=== PATIENT | male | born 1970 | race Asian ===

== ENCOUNTER 2016-11-26 10:36 | Observation (INO) | payer OTHER ==
[2016-11-26] MEDS ORDERED: NS 0.9% 1000 ML* 1,000 ML IV ONE (10:59)
[2016-11-26] MEDS ORDERED: Aspirin Low Dose CHEW TAB* 81 MG PO ONE (11:19)
[2016-11-26] MEDS ORDERED: Nitroglycerin TAB 0.4 MG* 0.4 MG TAB SL ONE (11:27)
[2016-11-26 11:30] LABS: Hematocrit 43 % (42-52); Hemoglobin 14.2 g/dl (14.0-18.0); Mean Corpuscular HGB Conc 33 g/dl (31-36); Mean Corpuscular Hemoglobin 30 pg (27-31); Mean Corpuscular Volume 91 fL (80-94); Mean Platelet Volume 9 um3 (7.4-10.4); Red Blood Count 4.74 10^6/ul (4.0-5.4); Red Cell Distribution Width 13 % (10.5-15); White Blood Count 4.6 10^3/ul (3.5-10.8)
[2016-11-26] MEDS ORDERED: Heparin for STEMI(*) 5,000 UNITS/ML 1 ML VIAL IV ONE (11:31)
[2016-11-26 11:48] LABS: ALT 29 U/L (7-52); AST 23 U/L (13-39); Albumin 4.2 g/dL (3.2-5.2); Alkaline Phosphatase 56 U/L (34-104); Anion Gap 7 mmol/L (2-11); BUN/Creatinine Ratio 13.2 (8-20); Blood Urea Nitrogen 10 mg/dL (6-24); CO2 Carbon Dioxide 25 mmol/L (22-32); Chloride 105 mmol/L (101-111); Creatine Kinase 136 U/L (10-223); EGFR African American 140.8 (>60); EGFR Non-African American 109.5 (>60); Globulin 2.9 g/dL (2-4); Glucose 97 mg/dL (70-100); Magnesium 2.2 mg/dL (1.9-2.7); Potassium 3.9 mmol/L (3.5-5.0); Sodium 137 mmol/L (133-145); Total Protein 7.1 g/dL (6.4-8.9)
[2016-11-26 12:15] LABS: TSH (Thyroid Stimulating Horm) 1.29 mcIU/mL (0.34-5.60)
--- NOTE | 2016-11-26 12:52 | RAD ---
Indication: Chest pain, CHF. Single frontal view of the chest performed at 1229 hours was reviewed. No prior study is available for comparison. No mediastinal shift is noted. Heart is of normal size and configuration. Lung padilla appear clear. IMPRESSION: NO ACTIVE CARDIOPULMONARY DISEASE IS NOTED.
[2016-11-26 12:59] LABS: C Reactive Protein < 1.00 mg/L (< 5.00); Calcium 9.1 mg/dL (8.6-10.3)
[2016-11-26] MEDS ORDERED: Acetaminophen TAB* 325 MG PO PRN (13:30)
[2016-11-26] MEDS ORDERED: Ondansetron INJ* 2 MG/ML VIAL IV PRN (13:30)
[2016-11-26 13:57] LABS: Urine Bacteria Absent (Absent); Urine Bilirubin Negative (Negative); Urine Glucose Negative (Negative); Urine Nitrite Negative (Negative)
[2016-11-26 14:16] LABS: Benzodiazepine Urine Screen None Detected (None Detect)
[2016-11-26] MEDS ORDERED: Enoxaparin(*) 40 MG/0.4 ML SYR SUBCUT SCH (15:00)
--- NOTE | 2016-11-26 16:01 | ED ---
Isidro Pedroza Salem, scribed for Gabo Alvarez MD on 11/26/16 at 1130 . HPI Chest Pain - HPI Summary HPI Summary: Patient is a 46 y/o M who presents to the ED with intermittent chest heaviness and pressure for the past 2 days. He reports irregular heartbeat, but denies SOB , diaphoresis, lightheadedness, or dizziness. Pt states that he drove to [place] recently and has been drinking a lot of EtOH and Redbull since. Pt denies PMHx of CAD. Dr. Barr called prior to pts arrival. He reports troponin of 0.05 and skipping heart beats. - History of Current Complaint Chief Complaint: EDDysrhythmPalp Time Seen by Provider: 11/26/16 11:25 Hx Obtained From: Patient Onset/Duration: Started Days Ago, Atraumatic, Still Present Timing: Intermittent Initial Severity: Moderate Current Severity: Moderate Pain Intensity: 0 Pain Scale Used: 0-10 Numeric Chest Pain Location: Diffuse Chest Pain Radiates: No Character: Pressure/Squeezing Aggravating Factor(s): Nothing Alleviating Factor(s): Nothing Associated Signs and Symptoms: Positive: Chest Pain. Negative: Shortness of Breath - Allergy/Home Medications Allergies/Adverse Reactions: Allergies Allergy/AdvReac Type Severity Reaction Status Date / Time No Known Allergies Allergy Verified 11/26/16 10:39 Home Medications: Home Medications Loratadine 10 mg PO DAILY PRN 11/26/16 [History Confirmed 11/26/16] ValACYclovir (*) [Valtrex 1 GM(*)] 1 gm PO DAILY PRN 11/26/16 [History Confirmed 11/26/16] PMH/Surg Hx/FS Hx/Imm Hx Cardiovascular History: Denies: Hx Pacemaker/ICD Sensory History: Denies: Hx Hearing Aid Psychiatric History: Denies: Hx Panic Disorder - Surgical History Surgery Procedure, Year, and Place: APPENDIX; LEFT ACHILLES HEEL; RIGHT ACL REPAIR; LEFT FOREARM Infectious Disease History: No Infectious Disease History: Denies: Traveled Outside the [place] in Last 30 Days - Family History Known Family History: Positive: Cardiac Disease - Uncle. , Hypertension, Diabetes - Social History Alcohol Use: Weekly Hx Substance Use: No Substance Use Type: Reports: None Hx Tobacco Use: No Smoking Status (MU): Never Smoked Tobacco Review of Systems Negative: Skin Diaphoresis Positive: Chest Pain - Heaviness and pressure. , Other - Irregular heartbeat. Negative: Shortness Of Breath Neurological: Other - No lightheadedness or dizziness. All Other Systems Reviewed And Are Negative: Yes Physical Exam - Summary Physical Exam Summary: The patient is well-nourished in no acute distress and in no acute pain. Pt is alert and follows commands. The skin is warm and skin color reflects adequate perfusion. Diaphoretic. HEENT: The head is normocephalic and atraumatic. The pupils are equal and reactive. The conjunctivae are clear and without drainage. Neck is supple with full range of motion and non-tender. There are no carotid bruits. There is no neck vein distension. Respiratory: Chest is non-tender. Lungs are clear to auscultation and breath sounds are symmetrical and equal. Cardiovascular: Heart is regular rhythm. Bradycardic. There is no murmur or rales auscultated. Abdomen: The abdomen is soft and non-tender. There are normal bowel sounds heard in all four quadrants and there is no organomegaly palpated. Musculoskeletal: There is no back pain noted. Extremities are non-tender with full range of motion. There is good capillary refill. There is no peripheral edema or calf tenderness elicited. Neurological: Patient is alert and oriented to person, place and time. Psychiatric: The patient has an appropriate affect and does not exhibit any anxiety or depression. Triage Information Reviewed: Yes Vital Signs On Initial Exam: Initial Vitals Temp Pulse Resp BP Pulse Ox 97.2 F 58 16 122/87 100 11/26/16 10:39 11/26/16 10:39 11/26/16 10:39 11/26/16 10:39 11/26/16 10:39 Vital Signs Reviewed: Yes - Christopher Coma Scale Coma Scale Total: 15 Diagnostics - Vital Signs Vital Signs Temp Pulse Resp BP Pulse Ox 11/26/16 10:50 97.2 F 56 16 122/87 98 11/26/16 10:39 97.2 F 58 16 122/87 100 - Laboratory Lab Results: Lab Results 11/26/16 11/26/16 11/26/16 Range/Units 11:17 11:17 11:17 WBC 4.6 (3.5-10.8) 10^3/ul RBC 4.74 (4.0-5.4) 10^6/ul Hgb 14.2 (14.0-18.0) g/dl Hct 43 (42-52) % MCV 91 (80-94) fL MCH 30 (27-31) pg MCHC 33 (31-36) g/dl RDW 13 (10.5-15) % Plt Count 167 (150-450) 10^3/ul MPV 9 (7.4-10.4) um3 Neut % (Auto) 63.0 (38-83) % Lymph % (Auto) 25.2 (25-47) % [place] % (Auto) 8.0 (1-9) % Eos % (Auto) 3.3 (0-6) % Baso % (Auto) 0.5 (0-2) % Absolute Neuts (auto) 2.9 (1.5-7.7) 10^3/ul Absolute Lymphs (auto) 1.2 (1.0-4.8) 10^3/ul Absolute Monos (auto) 0.4 (0-0.8) 10^3/ul Absolute Eos (auto) 0.1 (0-0.6) 10^3/ul Absolute Basos (auto) 0 (0-0.2) 10^3/ul Absolute Nucleated RBC 0 10^3/ul Nucleated RBC % 0.1 ESR Cancelled INR (Anticoag Therapy) (0.89-1.11) APTT (26.0-36.3) seconds Sodium 137 (133-145) mmol/L Potassium 3.9 (3.5-5.0) mmol/L Chloride 105 (101-111) mmol/L Carbon Dioxide 25 (22-32) mmol/L Anion Gap 7 (2-11) mmol/L BUN 10 (6-24) mg/dL Creatinine 0.76 (0.67-1.17) mg/dL Est GFR ( Amer) 140.8 (>60) Est GFR (Non-Af Amer) 109.5 (>60) BUN/Creatinine Ratio 13.2 (8-20) Glucose 97 (70-100) mg/dL Lactic Acid 1.2 (0.5-2.0) mmol/L Calcium 9.1 (8.6-10.3) mg/dL Magnesium 2.2 (1.9-2.7) mg/dL Total Bilirubin 0.90 (0.2-1.0) mg/dL AST 23 (13-39) U/L ALT 29 (7-52) U/L Alkaline Phosphatase 56 (34-104) U/L Total Creatine Kinase 136 (10-223) U/L CK-MB (CK-2) 2.7 (0.6-6.3) ng/mL Troponin I 0.00 (<0.04) ng/mL C-Reactive Protein < 1.00 (< 5.00) mg/L B-Natriuretic Peptide ( - 100) pg/mL Total Protein 7.1 (6.4-8.9) g/dL Albumin 4.2 (3.2-5.2) g/dL Globulin 2.9 (2-4) g/dL Albumin/Globulin Ratio 1.4 (1-3) TSH 1.29 (0.34-5.60) mcIU/mL Urine Color Urine Appearance Urine pH (5-9) Ur Specific Patriot (1.010-1.030) Urine Protein (Negative) Urine Ketones (Negative) Urine Blood (Negative) Urine Nitrate (Negative) Urine Bilirubin (Negative) Urine Urobilinogen (Negative) Ur Leukocyte Esterase (Negative) Urine WBC (Auto) (Absent) Urine RBC (Auto) (Absent) Ur Squamous Epith Cells (Absent) Urine Bacteria (Absent) Urine Glucose (Negative) Urine Opiates Screen (None Detect) Ur Barbiturates Screen (None Detect) Ur Phencyclidine Scrn (None Detect) Ur Amphetamines Screen (None Detect) U Benzodiazepines Scrn (None Detect) Urine Cocaine Screen (None Detect) U Cannabinoids Screen (None Detect) 11/26/16 11/26/16 11/26/16 Range/Units 11:17 11:17 11:37 WBC (3.5-10.8) 10^3/ul RBC (4.0-5.4) 10^6/ul Hgb (14.0-18.0) g/dl Hct (42-52) % MCV (80-94) fL MCH (27-31) pg MCHC (31-36) g/dl RDW (10.5-15) % Plt Count (150-450) 10^3/ul MPV (7.4-10.4) um3 Neut % (Auto) (38-83) % Lymph % (Auto) (25-47) % [place] % (Auto) (1-9) % Eos % (Auto) (0-6) % Baso % (Auto) (0-2) % Absolute Neuts (auto) (1.5-7.7) 10^3/ul Absolute Lymphs (auto) (1.0-4.8) 10^3/ul Absolute Monos (auto) (0-0.8) 10^3/ul Absolute Eos (auto) (0-0.6) 10^3/ul Absolute Basos (auto) (0-0.2) 10^3/ul Absolute Nucleated RBC 10^3/ul Nucleated RBC % ESR INR (Anticoag Therapy) 0.90 (0.89-1.11) APTT 28.8 (26.0-36.3) seconds Sodium (133-145) mmol/L Potassium (3.5-5.0) mmol/L Chloride (101-111) mmol/L Carbon Dioxide (22-32) mmol/L Anion Gap (2-11) mmol/L BUN (6-24) mg/dL Creatinine (0.67-1.17) mg/dL Est GFR ( Amer) (>60) Est GFR (Non-Af Amer) (>60) BUN/Creatinine Ratio (8-20) Glucose (70-100) mg/dL Lactic Acid (0.5-2.0) mmol/L Calcium (8.6-10.3) mg/dL Magnesium (1.9-2.7) mg/dL Total Bilirubin (0.2-1.0) mg/dL AST (13-39) U/L ALT (7-52) U/L Alkaline Phosphatase (34-104) U/L Total Creatine Kinase (10-223) U/L CK-MB (CK-2) (0.6-6.3) ng/mL Troponin I (<0.04) ng/mL C-Reactive Protein (< 5.00) mg/L B-Natriuretic Peptide 14 ( - 100) pg/mL Total Protein (6.4-8.9) g/dL Albumin (3.2-5.2) g/dL Globulin (2-4) g/dL Albumin/Globulin Ratio (1-3) TSH (0.34-5.60) mcIU/mL Urine Color Yellow Urine Appearance Cloudy Urine pH 5.0 (5-9) Ur Specific Patriot 1.016 (1.010-1.030) Urine Protein Negative (Negative) Urine Ketones Negative (Negative) Urine Blood 1+ H (Negative) Urine Nitrate Negative (Negative) Urine Bilirubin Negative (Negative) Urine Urobilinogen Negative (Negative) Ur Leukocyte Esterase Negative (Negative) Urine WBC (Auto) Absent (Absent) Urine RBC (Auto) 2+(6-10/hpf) H (Absent) Ur Squamous Epith Cells Present H (Absent) Urine Bacteria Absent (Absent) Urine Glucose Negative (Negative) Urine Opiates Screen (None Detect) Ur Barbiturates Screen (None Detect) Ur Phencyclidine Scrn (None Detect) Ur Amphetamines Screen (None Detect) U Benzodiazepines Scrn (None Detect) Urine Cocaine Screen (None Detect) U Cannabinoids Screen (None Detect) 11/26/16 Range/Units 11:37 WBC (3.5-10.8) 10^3/ul RBC (4.0-5.4) 10^6/ul Hgb (14.0-18.0) g/dl Hct (42-52) % MCV (80-94) fL MCH (27-31) pg MCHC (31-36) g/dl RDW (10.5-15) % Plt Count (150-450) 10^3/ul MPV (7.4-10.4) um3 Neut % (Auto) (38-83) % Lymph % (Auto) (25-47) % [place] % (Auto) (1-9) % Eos % (Auto) (0-6) % Baso % (Auto) (0-2) % Absolute Neuts (auto) (1.5-7.7) 10^3/ul Absolute Lymphs (auto) (1.0-4.8) 10^3/ul Absolute Monos (auto) (0-0.8) 10^3/ul Absolute Eos (auto) (0-0.6) 10^3/ul Absolute Basos (auto) (0-0.2) 10^3/ul Absolute Nucleated RBC 10^3/ul Nucleated RBC % ESR INR (Anticoag Therapy) (0.89-1.11) APTT (26.0-36.3) seconds Sodium (133-145) mmol/L Potassium (3.5-5.0) mmol/L Chloride (101-111) mmol/L Carbon Dioxide (22-32) mmol/L Anion Gap (2-11) mmol/L BUN (6-24) mg/dL Creatinine (0.67-1.17) mg/dL Est GFR ( Amer) (>60) Est GFR (Non-Af Amer) (>60) BUN/Creatinine Ratio (8-20) Glucose (70-100) mg/dL Lactic Acid (0.5-2.0) mmol/L Calcium (8.6-10.3) mg/dL Magnesium (1.9-2.7) mg/dL Total Bilirubin (0.2-1.0) mg/dL AST (13-39) U/L ALT (7-52) U/L Alkaline Phosphatase (34-104) U/L Total Creatine Kinase (10-223) U/L CK-MB (CK-2) (0.6-6.3) ng/mL Troponin I (<0.04) ng/mL C-Reactive Protein (< 5.00) mg/L B-Natriuretic Peptide ( - 100) pg/mL Total Protein (6.4-8.9) g/dL Albumin (3.2-5.2) g/dL Globulin (2-4) g/dL Albumin/Globulin Ratio (1-3) TSH (0.34-5.60) mcIU/mL Urine Color Urine Appearance Urine pH (5-9) Ur Specific Patriot (1.010-1.030) Urine Protein (Negative) Urine Ketones (Negative) Urine Blood (Negative) Urine Nitrate (Negative) Urine Bilirubin (Negative) Urine Urobilinogen (Negative) Ur Leukocyte Esterase (Negative) Urine WBC (Auto) (Absent) Urine RBC (Auto) (Absent) Ur Squamous Epith Cells (Absent) Urine Bacteria (Absent) Urine Glucose (Negative) Urine Opiates Screen None detected (None Detect) Ur Barbiturates Screen None detected (None Detect) Ur Phencyclidine Scrn None detected (None Detect) Ur Amphetamines Screen None detected (None Detect) U Benzodiazepines Scrn None detected (None Detect) Urine Cocaine Screen None detected (None Detect) U Cannabinoids Screen None detected (None Detect) Result Diagrams: 11/26/16 11:17 11/26/16 11:17 Lab Statement: Any lab studies that have been ordered have been reviewed, and results considered in the medical decision making process. - Radiology CXR Radiology Interpretation Completed By: Radiologist - IMPRESSION: NO ACTIVE CARDIOPULMONARY DISEASE IS NOTED. - EKG 1108 EKG Rhythm: Sinus Bradycardia - @ 58 bpm. EKG Interpretation: St depression 3 avf, v3, v4, v6. No ST elevation. Questionable LVH.No STEMI 1124 EKG Rhythm: Sinus Bradycardia - @ 57 bpm. EKG Interpretation: St depression 3 avf, v3, v4, v6. No ST elevation. Questionable LVH. No STEM 1125 EKG Rhythm: Sinus Bradycardia - @ 64 bpm. EKG Interpretation: St depression 3 avf, v3, v4, v6. No ST elevation. Questionable LVH. No STEM Chest Pain Course/Dx - Course Course Of Treatment: 46 y/o M who presents with intermittent chest heaviness and pressure for the past 2 days. He reports irregular heartbeat, but denies SOB , diaphoresis, lightheadedness, or dizziness. Pt received ASA, NTG, Heparin, and fluid in ED course. Discussed case with Dr. Alanis @ 1250. Will admit pt. Differential diagnoses MO or pericarditis. Dr. Man @ 1322. Recommends pt be admitted. - Chest Pain Differential Diagnosis/HQI/PQRI: Acute MO, ACS, Other: - cardiac dysrhythmia, cardiomyopathy, pericarditis, lvh - Diagnoses Provider Diagnoses: Chest pain - Provider Notifications Discussed Care Of Patient With: Gemini Clayton Time Discussed With Above Provider: 11:33 - Then at 1142. Third, 1222. Instructed by Provider To: Other - Will see Echo. - Critical Care Time Critical Care Time: 30-74 min - 30 minutes Discharge - Discharge Plan Condition: Stable Disposition: ADMITTED TO [facility] documentation as recorded by the Isidro waterman Salem accurately reflects the service I personally performed and the decisions made by , Gabo Alvarez MD.
[2016-11-26] MEDS ORDERED: Metoprolol Succinate XL TAB* 25 MG PO ONE (17:39)
--- NOTE | 2016-11-26 18:04 | HP ---
CC: Dr. Barr* MEDICINE HISTORY AND PHYSICAL: DATE OF ADMISSION: 11/26/16 PROVIDER: Mal Garner NP. ATTENDING PHYSICIAN: Dr. Aristeo Huddleston *(dictated by Mal Garner NP). CONSULTING PHYSICIAN: Dr. Gemini Clayton, Cardiology. PRIMARY CARE PROVIDER: Dr. Spencer Barr. CHIEF COMPLAINT: "Feeling odd for the past few days." HISTORY OF PRESENT ILLNESS: Mr. Montero is a 46-year-old male patient who presented to his PCP's office today for evaluation of "not feeling right" over the past few days. He reports that on Thursday evening he felt like his heart was racing. He had a "heavy feeling" across his chest and reported that it was hard to breathe. This lasted for up to an hour. He felt very fatigued and he went to sleep early. The following day, he was able to go to work and he played squash in the afternoon. He states that he still did not feel even quite normal then and again went to bed early. This morning, it still persisted and he still felt off and not quite right and so, he called his PCP for evaluation. He was seen in the office by Dr. Barr who noted that his EKG was abnormal with concern for ST elevations in the lateral leads and he was sent to the ER for further evaluation. The patient describes symptoms of feeling sluggish and slow. He only recalled 1 or 2 episodes where he felt his heart was racing. He wonders now if his heart rate is being slower than normal. Again, he does report that he has been shortness of breath and fatigue, but denies any pain, pressure, diaphoresis, nausea, arm, back, jaw pain, or insomnia. He reports he sleeps rather well. He does acknowledge that he has a sleep apnea history and does need a CPAP. The patient is trying to recall any other information that would be helpful. He does report that this past week was more stressful than usual, as he was in [facility] this weekend for a friend's . When he went to make the drive down and back, he did drink Red Bull which he normally does not drink. He had at least one a day on Thursday, Thursday, and perhaps Thursday. He also states after the that he probably took more alcohol than usual. Typically, he does report maybe 1 to 2 drinks most evenings, perhaps 4 to 5 nights a week. In terms of his caffeine use, he reports typically drinking 1 cup of green tea in the morning and a 20-ounce bottle of diet Coke in the afternoon. He denies any recent tick exposures, but states that he may have had a left lower calf insect bite that was swollen and itchy, but now has improved. He also reports exposure to what he calls "dirty water" as he was participating in a [employer] activity on [facility] last . In the ER, the patient's labs are benign thus far. His first troponin was 0.00. In the office the patient's troponin was less than 0.05 which is on the negative end of their laboratory scale. Urine tox screen is negative. The patient's EKGs in the ER showed sinus bradycardia with ST depressions in leads V3, V4, and V6 as well as aVF. The patient had sinus bradycardia on his EKGs with question of LVH. PAST MEDICAL HISTORY: Significant for: 1. Hypercholesterolemia. The patient states that his cholesterol is usually around 200, but he denies taking any medications for this. 2. Allergic rhinitis. 3. History of herpes infection to the buttocks. The patient states that it flares up in times of stress and he takes Valtrex p.r.n. 4. Obstructive sleep apnea with CPAP use. PAST SURGICAL HISTORY: 1. Appendectomy. 2. Left forearm ORIF. 3. Left Achilles tendinitis repair. HOME MEDICATIONS: 1. Valacyclovir 1 g daily p.r.n. 2. Loratadine 10 mg p.r.n. ALLERGIES: No known drug allergies. FAMILY HISTORY: Reports a father with hypertension, hyperlipidemia. He reports a mother with glaucoma and hypotension and a grandmother who may have had diabetes. SOCIAL HISTORY: He denies any current or former tobacco use. He reports 1 to 2 drinks per evening alcohol use 4 to 5 times a week. Denies any illicit drug use. 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 He reports regular exercise which includes playing squash 2 times a week, going to the gym at least once a week, and golf where he walks all 18 holes. He is . He has children. His , Court Mustafa, is his surrogate decision maker. Phone number is [phone]. REVIEW OF SYSTEMS: As per HPI. A 14-point review of systems was completed. All others not mentioned are negative. PHYSICAL EXAMINATION GENERAL: Mr. Montero is a well-developed, well-nourished male, pleasant affect, lying in the ED stretcher in no acute distress. VITAL SIGNS: Temperature 97.2, heart rate 60, respiratory rate 14, blood pressure 128/82, and O2 saturation is 97% on room air. HEENT: Head is atraumatic, normocephalic. Face is symmetrical. Pupils are equal, round, reactive to light and accommodation. Extraocular movements are intact. Oral mucosa appears moist. There is no oropharyngeal erythema. NECK: Supple. No lymphadenopathy appreciated. There is no JVD noted. The patient has full range of motion. RESPIRATORY: Lungs are clear to auscultation. No accessory muscle use. CARDIAC: S1, S2 heart sounds. Regular rate and rhythm. No murmurs, rubs, or gallops. There is no peripheral edema. Distal pulses are 2+. ABDOMEN: Soft, nontender, nondistended. Bowel sounds are heard times all 4 quadrants. MUSCULOSKELETAL: There is no clubbing or cyanosis. The patient has full range of motion to the extremities. NEUROLOGIC: The patient is alert and oriented x3. Moves all extremities with no focal weakness. SKIN: Grossly intact. There is a healing bug bite to the left posterior calf. LABORATORY DATA AND DIAGNOSTIC STUDIES: CBC: WBC 4.6, hemoglobin 14.2, hematocrit 43, platelet count 167. CMP: Sodium 137, potassium 3.9, chloride 105, carbon dioxide 25, BUN 10, creatinine 0.76, glucose 97, lactic acid 1.2, calcium 9.1, magnesium 2.2. Total bilirubin 0.9, AST 23, ALT 29, alk phos 56. Total CK 136. Troponin 0.00. CRP less than 1. BNP 14. Albumin 4.2. TSH 1.29. Urine shows 1+ blood in the UA. Toxicology report is negative. Chest x-ray: No active cardiopulmonary disease is noted. ASSESSMENT AND PLAN: Mr. Montero is a 46-year-old male patient whose past medical history is significant for herpes simplex virus and hypercholesterolemia who presents to the ER with concern for abnormal EKG. We will admit him under observation. Plan is as follows: 1. Abnormal EKG with reported palpitations. Admit to telemetry. The patient' s echocardiogram is pending. Cardiology is following and will consult on the patient. The patient does have a risk factor of hypercholesterolemia, but appears to be relatively fit and I do wonder if he perhaps was having a symptomatic bradycardia versus palpitations is unclear. This may also be some kind of an infectious process, although his CRP is negative. In any case, we will continue to monitor him on telemetry. His first troponin is negative. His D-dimer in the office was also negative. We will recheck a lipid profile in the morning. Continue to monitor. 2. Hypercholesterolemia. The patient is on no medications; it is diet controlled. Check lipid profile. Continue heart healthy diet. 3. FEN: The patient is ordered a heart healthy diet. 4. DVT prophylaxis: Encourage early ambulation. 5. Code status: The patient is full code. TIME SPENT: Time spent on this admission was approximately 60 minutes, more than half the time was spent [id number] with the patient obtaining history and physical, performing physical examination, and reviewing the plan of care. Plan of care was also reviewed with my attending, Dr. Aristeo Huddleston, who is in agreement. MAL GARNER, CHARGE ACCOUNT CLERK [id number]/[facility] #: [id number] MACHO
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
[2016-11-27 06:31] LABS: HDL Cholesterol 42.6 mg/dL
[2016-11-27] MEDS ORDERED: Aspirin Low Dose CHEW TAB* 81 MG PO SCH (09:00)
--- NOTE | 2016-11-27 10:28 | RAD ---
Edited for charges. INDICATION: LVH, HOCM, arrhythmia. Anginal symptoms. Family history of heart disease. COMPARISON: No relevant prior exams available on the [facility] PACS for comparison. TECHNIQUE: 10.600 mCi of Tc-99m Myoview were administered IV. SPECT images of the heart were obtained. Later on the same day, under the direction of Dr. Nunez, an exercise stress test was performed. The patient achieved a peak heart rate of 160 bpm, 93 % of the age- predicted maximum. Subsequently, the patient was given an IV injection of 25.210 mCi Tc- 99m Myoview. SPECT images of the heart were obtained and a gated wall motion study was performed. FINDINGS: Gated wall motion images were obtained at stress and demonstrate mild hypokinesia at the septum. The calculated left ventricular ejection fraction is 66 % at stress. Estimated LEFT ventricular end diastolic volume is 95 mL. TID 0.88. Based on review of the attenuation corrected and non corrected images the distribution of radiopharmaceutical within the myocardium on the stress and rest images is within normal limits. No fixed or reversible regions of hypoperfusion evident. IMPRESSION: 1. No evidence for stress induced myocardial ischemia or presence of an infarct. 2. Normal range estimated LEFT ventricular ejection fraction. Mild hypokinesia at the septum. ASSESSMENT: LOW RISK. Based on imaging criteria from ACC/AHA 2002 Guideline Update for the Management of Patients With Chronic Stable Angina Table 23. Noninvasive Risk Stratification. MTDD
[2016-11-27 10:55] VITALS: BP 119/81
--- NOTE | 2016-11-27 11:22 | DCNOTE ---
Subjective Date of Service: 11/27/16 Interval History: Patient seen and examined at bedside. He denies any complaint overnight, including dizziness, palpitations, CP, SOB. Discussed cardiac concerns for LVH and cardiomyopathy - patient understands and verbalizes that he will choose caffeine free options and avoid ETOH and hold on any further squash playing until cardiology follow-up. Family History: Unchanged from Admission Social History: Unchanged from Admission Past Medical History: Unchanged from Admission Objective Active Medications: Acetaminophen (Tylenol Tab*) 650 mg PO Q4H PRN PRN Reason: FEVER/PAIN Aspirin (Aspirin Low Dose Tab*) 81 mg PO DAILY ANKUR Enoxaparin Sodium (Lovenox(*)) 40 mg SUBCUT Q24H ANKUR Last Admin: 11/26/16 15:46 Dose: 40 mg Metoprolol Succinate (Toprol Xl Tab*) 25 mg PO ONCE ONE Last Admin: 11/26/16 19:01 Dose: 25 mg Ondansetron HCl (Zofran Inj*) 4 mg IV Q6H PRN PRN Reason: NAUSEA/VOMITING Vital Signs 11/26/16 11/26/16 11/26/16 13:00 15:04 15:20 Temperature 97.6 F Pulse Rate 63 54 64 Respiratory 17 16 Rate Blood Pressure 116/78 130/87 133/87 (mmHg) O2 Sat by Pulse 98 98 Oximetry 11/26/16 11/26/16 11/26/16 19:19 20:00 23:41 Temperature 97.4 F 97.5 F Pulse Rate 61 54 Respiratory 16 16 16 Rate Blood Pressure 125/92 122/92 (mmHg) O2 Sat by Pulse 98 99 Oximetry 11/27/16 11/27/16 03:56 07:44 Temperature 97.6 F 97.5 F Pulse Rate 55 51 Respiratory 16 16 Rate Blood Pressure 107/76 119/81 (mmHg) O2 Sat by Pulse 99 98 Oximetry Oxygen Devices in Use Now: None Appearance: Young male, lying in bed, NAD Eyes: PERRLA Ears/Nose/Mouth/Throat: Mucous Membranes Moist Neck: NL Appearance and Movements; NL JVP Respiratory: Symmetrical Chest Expansion and Respiratory Effort, Clear to Auscultation Cardiovascular: NL Sounds; No Murmurs; No JVD, RRR - mildly bradycardic Abdominal: NL Sounds; No Tenderness; No Distention Extremities: No Edema, No Clubbing, Cyanosis Skin: No Rash or Ulcers Neurological: Alert and Oriented x 3, NL Gait, NL Muscle Strength and Tone Lines/Tubes/Other Access: Clean, Dry and Intact Peripheral IV Nutrition: Taking PO's Result Diagrams: 11/26/16 11:17 11/26/16 11:17 Additional Lab and Data: Lab Results 11/26/16 11/26/16 11/26/16 Range/Units 11:17 11:17 11:17 WBC 4.6 (3.5-10.8) 10^3/ul RBC 4.74 (4.0-5.4) 10^6/ul Hgb 14.2 (14.0-18.0) g/dl Hct 43 (42-52) % MCV 91 (80-94) fL MCH 30 (27-31) pg MCHC 33 (31-36) g/dl RDW 13 (10.5-15) % Plt Count 167 (150-450) 10^3/ul MPV 9 (7.4-10.4) um3 Neut % (Auto) 63.0 (38-83) % Lymph % (Auto) 25.2 (25-47) % Scurry % (Auto) 8.0 (1-9) % Eos % (Auto) 3.3 (0-6) % Baso % (Auto) 0.5 (0-2) % Absolute Neuts (auto) 2.9 (1.5-7.7) 10^3/ul Absolute Lymphs (auto) 1.2 (1.0-4.8) 10^3/ul Absolute Monos (auto) 0.4 (0-0.8) 10^3/ul Absolute Eos (auto) 0.1 (0-0.6) 10^3/ul Absolute Basos (auto) 0 (0-0.2) 10^3/ul Absolute Nucleated RBC 0 10^3/ul Nucleated RBC % 0.1 ESR Cancelled INR (Anticoag Therapy) (0.89-1.11) APTT (26.0-36.3) seconds Sodium 137 (133-145) mmol/L Potassium 3.9 (3.5-5.0) mmol/L Chloride 105 (101-111) mmol/L Carbon Dioxide 25 (22-32) mmol/L Anion Gap 7 (2-11) mmol/L BUN 10 (6-24) mg/dL Creatinine 0.76 (0.67-1.17) mg/dL Est GFR ( Amer) 140.8 (>60) Est GFR (Non-Af Amer) 109.5 (>60) BUN/Creatinine Ratio 13.2 (8-20) Glucose 97 (70-100) mg/dL Lactic Acid 1.2 (0.5-2.0) mmol/L Calcium 9.1 (8.6-10.3) mg/dL Magnesium 2.2 (1.9-2.7) mg/dL Total Bilirubin 0.90 (0.2-1.0) mg/dL AST 23 (13-39) U/L ALT 29 (7-52) U/L Alkaline Phosphatase 56 (34-104) U/L Total Creatine Kinase 136 (10-223) U/L CK-MB (CK-2) 2.7 (0.6-6.3) ng/mL Troponin I 0.00 (<0.04) ng/mL C-Reactive Protein < 1.00 (< 5.00) mg/L B-Natriuretic Peptide ( - 100) pg/mL Total Protein 7.1 (6.4-8.9) g/dL Albumin 4.2 (3.2-5.2) g/dL Globulin 2.9 (2-4) g/dL Albumin/Globulin Ratio 1.4 (1-3) TSH 1.29 (0.34-5.60) mcIU/mL Urine Color Urine Appearance Urine pH (5-9) Ur Specific [place] (1.010-1.030) Urine Protein (Negative) Urine Ketones (Negative) Urine Blood (Negative) Urine Nitrate (Negative) Urine Bilirubin (Negative) Urine Urobilinogen (Negative) Ur Leukocyte Esterase (Negative) Urine WBC (Auto) (Absent) Urine RBC (Auto) (Absent) Ur Squamous Epith Cells (Absent) Urine Bacteria (Absent) Urine Glucose (Negative) Urine Opiates Screen (None Detect) Ur Barbiturates Screen (None Detect) Ur Phencyclidine Scrn (None Detect) Ur Amphetamines Screen (None Detect) U Benzodiazepines Scrn (None Detect) Urine Cocaine Screen (None Detect) U Cannabinoids Screen (None Detect) 11/26/16 11/26/16 11/26/16 Range/Units 11:17 11:17 11:37 WBC (3.5-10.8) 10^3/ul RBC (4.0-5.4) 10^6/ul Hgb (14.0-18.0) g/dl Hct (42-52) % MCV (80-94) fL MCH (27-31) pg MCHC (31-36) g/dl RDW (10.5-15) % Plt Count (150-450) 10^3/ul MPV (7.4-10.4) um3 Neut % (Auto) (38-83) % Lymph % (Auto) (25-47) % Scurry % (Auto) (1-9) % Eos % (Auto) (0-6) % Baso % (Auto) (0-2) % Absolute Neuts (auto) (1.5-7.7) 10^3/ul Absolute Lymphs (auto) (1.0-4.8) 10^3/ul Absolute Monos (auto) (0-0.8) 10^3/ul Absolute Eos (auto) (0-0.6) 10^3/ul Absolute Basos (auto) (0-0.2) 10^3/ul Absolute Nucleated RBC 10^3/ul Nucleated RBC % ESR INR (Anticoag Therapy) 0.90 (0.89-1.11) APTT 28.8 (26.0-36.3) seconds Sodium (133-145) mmol/L Potassium (3.5-5.0) mmol/L Chloride (101-111) mmol/L Carbon Dioxide (22-32) mmol/L Anion Gap (2-11) mmol/L BUN (6-24) mg/dL Creatinine (0.67-1.17) mg/dL Est GFR ( Amer) (>60) Est GFR (Non-Af Amer) (>60) BUN/Creatinine Ratio (8-20) Glucose (70-100) mg/dL Lactic Acid (0.5-2.0) mmol/L Calcium (8.6-10.3) mg/dL Magnesium (1.9-2.7) mg/dL Total Bilirubin (0.2-1.0) mg/dL AST (13-39) U/L ALT (7-52) U/L Alkaline Phosphatase (34-104) U/L Total Creatine Kinase (10-223) U/L CK-MB (CK-2) (0.6-6.3) ng/mL Troponin I (<0.04) ng/mL C-Reactive Protein (< 5.00) mg/L B-Natriuretic Peptide 14 ( - 100) pg/mL Total Protein (6.4-8.9) g/dL Albumin (3.2-5.2) g/dL Globulin (2-4) g/dL Albumin/Globulin Ratio (1-3) TSH (0.34-5.60) mcIU/mL Urine Color Yellow Urine Appearance Cloudy Urine pH 5.0 (5-9) Ur Specific [place] 1.016 (1.010-1.030) Urine Protein Negative (Negative) Urine Ketones Negative (Negative) Urine Blood 1+ H (Negative) Urine Nitrate Negative (Negative) Urine Bilirubin Negative (Negative) Urine Urobilinogen Negative (Negative) Ur Leukocyte Esterase Negative (Negative) Urine WBC (Auto) Absent (Absent) Urine RBC (Auto) 2+(6-10/hpf) H (Absent) Ur Squamous Epith Cells Present H (Absent) Urine Bacteria Absent (Absent) Urine Glucose Negative (Negative) Urine Opiates Screen (None Detect) Ur Barbiturates Screen (None Detect) Ur Phencyclidine Scrn (None Detect) Ur Amphetamines Screen (None Detect) U Benzodiazepines Scrn (None Detect) Urine Cocaine Screen (None Detect) U Cannabinoids Screen (None Detect) 11/26/16 Range/Units 11:37 WBC (3.5-10.8) 10^3/ul RBC (4.0-5.4) 10^6/ul Hgb (14.0-18.0) g/dl Hct (42-52) % MCV (80-94) fL MCH (27-31) pg MCHC (31-36) g/dl RDW (10.5-15) % Plt Count (150-450) 10^3/ul MPV (7.4-10.4) um3 Neut % (Auto) (38-83) % Lymph % (Auto) (25-47) % Scurry % (Auto) (1-9) % Eos % (Auto) (0-6) % Baso % (Auto) (0-2) % Absolute Neuts (auto) (1.5-7.7) 10^3/ul Absolute Lymphs (auto) (1.0-4.8) 10^3/ul Absolute Monos (auto) (0-0.8) 10^3/ul Absolute Eos (auto) (0-0.6) 10^3/ul Absolute Basos (auto) (0-0.2) 10^3/ul Absolute Nucleated RBC 10^3/ul Nucleated RBC % ESR INR (Anticoag Therapy) (0.89-1.11) APTT (26.0-36.3) seconds Sodium (133-145) mmol/L Potassium (3.5-5.0) mmol/L Chloride (101-111) mmol/L Carbon Dioxide (22-32) mmol/L Anion Gap (2-11) mmol/L BUN (6-24) mg/dL Creatinine (0.67-1.17) mg/dL Est GFR ( Amer) (>60) Est GFR (Non-Af Amer) (>60) BUN/Creatinine Ratio (8-20) Glucose (70-100) mg/dL Lactic Acid (0.5-2.0) mmol/L Calcium (8.6-10.3) mg/dL Magnesium (1.9-2.7) mg/dL Total Bilirubin (0.2-1.0) mg/dL AST (13-39) U/L ALT (7-52) U/L Alkaline Phosphatase (34-104) U/L Total Creatine Kinase (10-223) U/L CK-MB (CK-2) (0.6-6.3) ng/mL Troponin I (<0.04) ng/mL C-Reactive Protein (< 5.00) mg/L B-Natriuretic Peptide ( - 100) pg/mL Total Protein (6.4-8.9) g/dL Albumin (3.2-5.2) g/dL Globulin (2-4) g/dL Albumin/Globulin Ratio (1-3) TSH (0.34-5.60) mcIU/mL Urine Color Urine Appearance Urine pH (5-9) Ur Specific [place] (1.010-1.030) Urine Protein (Negative) Urine Ketones (Negative) Urine Blood (Negative) Urine Nitrate (Negative) Urine Bilirubin (Negative) Urine Urobilinogen (Negative) Ur Leukocyte Esterase (Negative) Urine WBC (Auto) (Absent) Urine RBC (Auto) (Absent) Ur Squamous Epith Cells (Absent) Urine Bacteria (Absent) Urine Glucose (Negative) Urine Opiates Screen None detected (None Detect) Ur Barbiturates Screen None detected (None Detect) Ur Phencyclidine Scrn None detected (None Detect) Ur Amphetamines Screen None detected (None Detect) U Benzodiazepines Scrn None detected (None Detect) Urine Cocaine Screen None detected (None Detect) U Cannabinoids Screen None detected (None Detect) Assess/Plan/Problems-Billing Assessment: Mr. Montero is a 46 yo male with a PMH of HLD, seasonal allergies and recurrent HSV who presented on 11/26 with concern for abnormal EKG findings at his PCP office. - Patient Problems (1) Hypertrophic cardiomyopathy Code(s): I42.2 - OTHER HYPERTROPHIC CARDIOMYOPATHY Comment: T wave inversions seen in leads V4-V6, reviewed by cardiology, not thought to be acute STEMI Echocardiogram with concern for mild to moderate LVH without obvious etiology ( HTN, DM) Negative exercise ECG for inducible ischemia and arrhythmias (no V-tach in excess of target HR) Patient had uncle who of sudden cardiac arrest at young age. Start Toprol XL 25 mg daily Outpatient cardiology follow-up with plan for cardiac MRI Patient advised to stay hydrated, avoid ETOH and caffeine, continue light to moderate exercise but advised against playing squash. (2) Dyslipidemia Code(s): E78.5 - HYPERLIPIDEMIA, UNSPECIFIED Comment: Currently diet controlled TG 168, total cholesterol 191, LDL 115, HDL 42 Patient with 3.2% calculated ASCVD risk and no DM or HTN No ischemia seen on stress test Continue outpatient f/u with PCP and cardiology (3) DVT prophylaxis Comment: SQ Lovenox SCDs Status and Disposition: OBV admit. D/c to home with outpatient cardiology follow-up.
--- NOTE | 2016-11-28 11:20 | DS ---
CC: Dr. Barr DISCHARGE SUMMARY: DATE OF ADMISSION: 11/26/16 DATE OF DISCHARGE: 11/27/16 PRIMARY CARE PHYSICIAN: Dr. Barr. PROVIDER: Mal Garner NP. ATTENDING PHYSICIAN: Dr. Aristeo Huddleston (as dictated by Mal Garner NP). CONSULTING PHYSICIAN: Dr. Gemini Clayton. PRIMARY CARE PROVIDER: Dr. Spencer Barr. PRIMARY DISCHARGE DIAGNOSES: 1. Left ventricular hypertrophy with concern for cardiomyopathy. 2. Hyperlipidemia. SECONDARY DISCHARGE DIAGNOSES: 1. Seasonal allergies. 2. Obstructive sleep apnea with CPAP use. 3. Recurrent herpes simplex virus infection, stress induced. 4. History of appendectomy. 5. History of left forearm ORIF. 6. History of left Achilles tendonitis repair. MEDICATIONS AT DISCHARGE: 1. Valtrex 1 g daily p.r.n. 2. Loratadine 10 mg daily p.r.n. New medications at discharge: 1. Metoprolol succinate XL 25 mg daily. HOSPITAL TESTING DURING THIS ADMISSION: Transthoracic echocardiogram, conclusions: [id number] concentric left ventricular hypertrophy is observed. Global left ventricular wall motion and contractility were within normal limits. The estimated ejection fraction is 55% to 60%. Abnormal left ventricular diastolic function is observed. The right ventricular chamber size and systolic function are within normal limits. There is a trace aortic regurgitation with structurally normal trileaflet aortic valve. There is a trace mitral regurgitation. There is a trace tricuspid regurgitation. No pulmonary hypertension is noted. There is mild dilatation of the ascending aorta at 3.7 cm. No prior echo to compare. Chest x-ray from 11/26/16, no active cardiopulmonary disease is noted. Nuclear medicine scan, findings: Calculated left ventricular ejection fraction of 66% on stress, estimated left ventricular end diastolic volume is 95 mL TID 0.88. Based on review of the attenuation corrected and non-corrected images, the distribution of radiopharmaceutical within the myocardium on the stress and rest images were within normal limits. No fixed or reversible regions of hypoperfusion evident. There is mild hypokinesia of the septum. Assessment: Low risk. HOSPITAL COURSE OF STAY: For full details, please refer to the H and P provided on 11/26/16. In summary, Mr. Montero is a 46-year-old male patient, who was evaluated at his PCP's office with concern for feeling "off" times a few days. At the office, the patient had an abnormal EKG with concern for ST elevations and he was sent to the ER for further evaluation. The patient describes feeling sluggish as well. He reports heavy feeling over his chest a few days ago and associated dyspnea. When the patient arrived to the ER, there was concern for acute NH, however, he was seen by the agile java developer, who reviewed the EKG and felt this did not fit in an NH. There was concern for left ventricular hypertrophy and, upon further investigation, it was found that the patient has a relative who from sudden cardiac arrest in his 40s after diving into a pool. Again the patient had inverted T waves in V4 through V6 as well as in the inferior leads III and aVF. With these findings and his echocardiogram, there was concern for an inherited cardiomyopathy. The patient was started on a low-dose beta-laurel and we did obtain an exercise Myoview to evaluate for ischemia and atherosclerotic disease which, as per above, was negative. The patient's exercise portion was negative for inducible ischemia and arrhythmias and there is no V-tach seen in excess of target heart rate. The patient was seen by Cardiology and she did discuss with the patient need to have further outpatient cardiology followup. The patient is an avid squash player. He has been advised to stop playing squash for the upcoming weeks. He is allowed to do [id number] exercise. He has also been advised against any further alcohol or caffeine use. Ultimately, he is going to need a cardiac MRI, which will be arranged in the outpatient. In regards to his lipid profile , the patient has mildly elevated LDLs at 115. His HDLs are 42, total cholesterol is 191 and his triglycerides are 168. We did discuss the need for better diet control and management, although there is no current concern for ischemia. A statin is not recommended at this time. The patient's calculated ASCVD risk is 3.2%. CONCERNS AT DISCHARGE: Mr. Montero was discharged to home on 11/27/16. He is to follow up with Dr. Barr next week on 12/[address] Clayton on 12/25/16. OUTPATIENT FOLLOWUP NEEDS: The patient needs to have a cardiac MRI, which will be arranged in his followup appointments. Additionally, the patient is again advised to refrain from strenuous activity, stay well hydrated, continue his beta-laurel, and to avoid caffeine and alcohol. DIET: Heart healthy diet. ACTIVITY: As tolerated. Again [id number] exercise. CONDITION: Stable. DISPOSITION: To home. TIME SPENT: Time spent on this discharge was approximately 45 minutes. Again this is only a brief summary of the patient's hospital course of stay. For full details, please refer to the full medical record. If you have any questions or need further assistance, please feel free to contact me at . MAL GARNER, ELADIO [id number]/CPS #: [id number] MACHO
== END 2016-11-27 12:13 | disposition home or self-care (01) ==
LOC: ED 10:36 → MEDTELE 12:55
PROVIDERS: ADMIT Internal Medicine; ATTEND Hospitalist
DX: I51.7 Cardiomegaly (principal); R00.2 Palpitations; R94.31 Abnormal electrocardiogram [ECG] [EKG]; E78.5 Hyperlipidemia, unspecified; E78.00 Pure hypercholesterolemia, unspecified; G47.33 Obstructive sleep apnea (adult) (pediatric); Z79.899 Other long term (current) drug therapy; R07.9 Chest pain, unspecified
CPT/HCPCS: 36415; 71010; 78452; 80053; 80061; 80307; 81003; 81015; 82550; 82553; 83036; 83605; 83735; 83880; 84443; 84484; 85025; 85610; 85652; 85730; 86140; 86618; 93005; 93017; 93306; 96360; 96361; 96372; 99291; A9270-GY; A9502; G0378; J1644; J1650